=== PATIENT | male | born 1995 | race Caucasian/White ===

== ENCOUNTER 2021-11-20 20:11 | Emergency (ER) | payer OTHER ==
[~2021-11-20] VITALS: Ht 195.6 cm; Wt 109.1 kg
[2021-11-20 20:35] VITALS: TEMP 97.9
[2021-11-21 00:35] VITALS: BP 131/86; PULSE 78
== END 2021-11-21 00:35 | disposition home or self-care (01) ==
LOC: COL.ER 20:11
DX: S61.226A Laceration with foreign body of right little finger without damage to nail, initial encounter (principal); S61.224A Laceration with foreign body of right ring finger without damage to nail, initial encounter; S81.821A Laceration with foreign body, right lower leg, initial encounter; S41.122A Laceration with foreign body of left upper arm, initial encounter; Z23 Encounter for immunization; Z88.0 Allergy status to penicillin; W25.XXXA Contact with sharp glass, initial encounter